=== PATIENT | female | born 1985 | race Caucasian/White ===

== ENCOUNTER → 2016-06-29 | Outpatient (CLI) | payer BC | END | disposition home or self-care (01) | LOC: GMAM 15:27 | PROVIDERS: ATTEND Family Medicine | DX: R53.83 Other fatigue (principal); F41.1 Generalized anxiety disorder ==

== ENCOUNTER 2019-07-31 09:06 | Emergency (ER) | payer BC ==
[2019-07-31] MEDS ORDERED: ONDANSETRON INJ 4 MG/2 ML VIAL IV ONE (09:14)
[2019-07-31] MEDS ORDERED: SODIUM CHLORIDE 0.9% (FLUSH) 10 ML SYG IV PRN (09:14)
[2019-07-31] MEDS ORDERED: KETOROLAC TROMETHAMINE INJ 30 MG/ML VIAL IV ONE (09:14)
[2019-07-31] MEDS ORDERED: SODIUM CHLORIDE 0.9% 1000ML 1,000 ML IVS ONE ×2 (09:15→09:58)
[2019-07-31] MEDS ORDERED: MORPHINE SULFATE INJ 10 MG/ML VIAL IV ONE ×2 (09:15→10:04)
--- NOTE | 2019-07-31 09:19 | ED.PDOC ---
History of Present Illness - General Time Seen by Provider: 07/31/19 09:10 Source: patient - History of Present Illness Initial Comments: 34 yo female with PMH of kidney stones who presents with cc of left flank and LLQ pain. Reports mild dull aching pains to Left flank for a couple days, acutely worsened this morning just [employer]. Now reports as sharp severe pain to Left flank which radiates to LLQ, constant, no known exacerbating factors, nothing taken at home for relief. LMP was 2 weeks ago. Denies any fevers, chills, diarrhea. Reports nausea and NBNB emesis upon ED arrival. Reports recent frequent urination but no burning or dysuria. Has had hx of UTI's in the past and kidney infections. Allergies/Adverse Reactions: Allergies NO KNOWN ALLERGY Allergy (Verified 07/31/19 09:47) Home Medications: Ambulatory Orders Norethindrone (Contraceptive) [Melissa] 0.35 mg PO DAILY #3 tab 11/08/13 RX: Ferrous Sulfate [Feosol Tab] 325 mg PO DAILY #100 tab 11/08/13 RX: HYDROcodone 5MG/APAP 325MG [Herreid 5/325] 1 ea PO Q8H PRN #12 tab 11/08/13 RX: Ibuprofen [Motrin] 600 mg PO Q8H PRN #22 tab 11/08/13 Acetamin W/Cod #3 Tab [Tylenol w/CODEINE #3] 1 ea PO Q6H PRN 10 Days #20 tab 07/31/19 Ondansetron Odt [Zofran ODT] 8 mg PO Q8H PRN 5 Days #10 tab 07/31/19 Tamsulosin [Flomax] 0.4 mg PO DAILY 7 Days #7 cap 07/31/19 Review of Systems - Review of Systems Review of Systems: 07/31/19 09:19 as per HPI All other Systems: Reviewed and Negative Past Medical History (General) - Patient Medical History Hx Seizures: No Hx Stroke: No Hx Dementia: No Hx Asthma: No Hx of COPD: No Hx Cardiac Disorders: No Hx Congestive Heart Failure: No Hx Pacemaker: No Hx Hypertension: No Hx Thyroid Disease: No Hx Diabetes: No Hx Gastroesophageal Reflux: No Hx Renal Disease: No Hx Cancer: No Hx of HIV: No Hx Hepatitis C: No Hx MRSA: No - Vaccination History Hx Tetanus, Diphtheria Vaccination: No Hx Influenza Vaccination: No Hx Pneumococcal Vaccination: No - Social History Hx Tobacco Use: No Hx Alcohol Use: No Hx Substance Use: No Hx Substance Use Treatment: No Hx Depression: No - Female History Hx Last Menstrual Period: 01/22/13 Patient : No Expected Date of Delivery:: 11/10/13 Family Medical History - Family History Mother Family History: No Known Physical Exam - Physical Exam General Appearance: Alert, Other - appears in distress from pain Eye Exam: bilateral normal Ears, Nose, Throat: hearing grossly normal, normal ENT inspection Neck: non-tender, full range of motion, supple, normal inspection Respiratory: lungs clear, normal breath sounds, no respiratory distress, no accessory muscle use Cardiovascular/Chest: normal peripheral pulses, regular rate, rhythm, no edema, no gallop, no JVD, no murmur Peripheral Pulses: radial,right: 2+, radial,left: 2+ Gastrointestinal/Abdominal: soft, tenderness - moderate to LLQ, no noted CVA tenderness Extremity: normal range of motion, non-tender, normal inspection, no pedal edema, no calf tenderness, normal capillary refill Neurologic: production finisher II-XII nml as tested, no motor/sensory deficits, alert, normal mood/affect, oriented x 3 Skin Exam: normal color, warm/dry Progress - Progress Progress: 07/31/19 09:20 Left flank and LLQ pain -consider kidney stone vs UTI/pyelo most likely. Consider also ectopic , ovarian torsion, ovarian cyst, constipation, appendicitis, pancreatitis, colitis, mesenteric adenitis, other -obtain labs, UA, hcg -place PIV, 1 L NS bolus, Toradol 30 mg IV, morphine 5 mg IV, Zofran 4 mg IV 07/31/19 12:08 -Labs show UA with 20-30 RBC, 0-1 WBC, rare bacteria - susp for kidney stone. WBC wnl, Cr 1.1, lactate 2.8. HCG negative. -CT A/P reveals moderate BL hydronephrosis and nonobstructing stone in L kidney but no ureteral stones. Suspect possibly very small stone missed by CT vs passed stone. Consider also ovarian cyst vs torsion still possible. -Pt still reports moderate pain in ED. Will obtain TVUS and repeat lactate. 08/01/19 15:00 -Repeat lactate improved to 1.3. TVUS showed normal appearing ovaries and 2 <2 cm fibroids in the uterus. Otherwise unremarkable. -Pt has remained stable in ED, pain markedly improved. Suspect likely ureteral stone which has either been missed on CT imaging or has been passed. Discussed with pt - will give Rx of Flomax, Tylenol #3 PRN, Zofran PRN. Dc home in good condition, return warnings discussed at length. F/u closely with PCP. Eber Velásquez MD Billing #[id number] 07/31/19 09:14 IV Care:Saline Lock per Protoc QSHIFT 07/31/19 12:15 BLOOD CULTURE Stat Laboratory Results - last 24 hr 07/31/19 07/31/19 07/31/19 09:23 09:23 09:23 WBC 8.1 RBC 4.20 Hgb 13.1 Hct 38.2 MCV 90.9 MCH 31.2 H MCHC 34.3 RDW 12.7 Plt Count 257 MPV 9.6 Absolute Neuts (auto) 3.90 Absolute Lymphs (auto) 3.40 Absolute Monos (auto) 0.60 Absolute Eos (auto) 0.10 Absolute Basos (auto) 0.10 Neutrophils % 48.7 Lymphocytes % 42.3 Monocytes % 6.9 Eosinophils % 1.2 Basophils % 0.9 Sodium 140 Potassium 3.6 Chloride 105 Carbon Dioxide 22 Anion Gap 16.6 BUN 14 Creatinine 1.14 BUN/Creatinine Ratio 12.3 Random Glucose 154 H Serum Osmolality 283.0 Lactic Acid 2.9 H* Calcium 9.2 Total Bilirubin 0.6 Direct Bilirubin 0.1 Indirect Bilirubin 0.5 AST 43 H ALT 42 Alkaline Phosphatase 31 L Serum Total Protein 6.8 Albumin 4.1 Amylase 61 Lipase 35 Serum HCG, Qual Urine Color Urine Appearance Urine pH Ur Specific [place] Urine Protein Urine Glucose (UA) Urine Ketones Urine Blood Urine Nitrite Urine Bilirubin Urine Urobilinogen Ur Leukocyte Esterase Urine RBC Urine WBC Ur Epithelial Cells Amorphous Sediment Urine Bacteria Urine HCG, Qual 07/31/19 07/31/19 07/31/19 09:23 10:25 12:15 WBC RBC Hgb Hct MCV MCH MCHC RDW Plt Count MPV Absolute Neuts (auto) Absolute Lymphs (auto) Absolute Monos (auto) Absolute Eos (auto) Absolute Basos (auto) Neutrophils % Lymphocytes % Monocytes % Eosinophils % Basophils % Sodium Potassium Chloride Carbon Dioxide Anion Gap BUN Creatinine BUN/Creatinine Ratio Random Glucose Serum Osmolality Lactic Acid 1.3 Calcium Total Bilirubin Direct Bilirubin Indirect Bilirubin AST ALT Alkaline Phosphatase Serum Total Protein Albumin Amylase Lipase Serum HCG, Qual Negative Urine Color Yellow Urine Appearance Sl cloudy Urine pH 7.0 Ur Specific [place] 1.025 Urine Protein Negative Urine Glucose (UA) Negative Urine Ketones Trace Urine Blood Moderate H Urine Nitrite Negative Urine Bilirubin Negative Urine Urobilinogen 0.2 Ur Leukocyte Esterase Negative Urine RBC 20-30 H Urine WBC 0-1 Ur Epithelial Cells 5-10 Amorphous Sediment 1+ Urine Bacteria Rare Urine HCG, Qual Cancelled Departure - Departure Clinical Impression: Kidney stone on left side, Fibroid uterus Time of Disposition: 14:14 Disposition: Discharge to Home or Self Care Condition: Fair Departure Forms: ED Discharge - Pt. Copy, Patient Portal Self Enrollment Instructions: Kidney Stones (DC), Uterine Fibroids (DC) Diet: resume usual diet Referrals: Tayo Ba MD [Primary Care Provider] - 1-2 Weeks Prescriptions: Acetamin W/Cod #3 Tab [Tylenol w/CODEINE #3] 1 ea PO Q6H PRN 10 Days #20 tab PRN Reason: Pain Ondansetron Odt [Zofran ODT] 8 mg PO Q8H PRN 5 Days #10 tab PRN Reason: Nausea Tamsulosin [Flomax] 0.4 mg PO DAILY 7 Days #7 cap Home Medications: Ambulatory Orders Norethindrone (Contraceptive) [Melissa] 0.35 mg PO DAILY #3 tab 11/08/13 RX: Ferrous Sulfate [Feosol Tab] 325 mg PO DAILY #100 tab 11/08/13 RX: HYDROcodone 5MG/APAP 325MG [Herreid 5/325] 1 ea PO Q8H PRN #12 tab 11/08/13 RX: Ibuprofen [Motrin] 600 mg PO Q8H PRN #22 tab 11/08/13 Acetamin W/Cod #3 Tab [Tylenol w/CODEINE #3] 1 ea PO Q6H PRN 10 Days #20 tab 07/31/19 Ondansetron Odt [Zofran ODT] 8 mg PO Q8H PRN 5 Days #10 tab 07/31/19 Tamsulosin [Flomax] 0.4 mg PO DAILY 7 Days #7 cap 07/31/19 Additional Instructions: Return if symptoms worsen or other concerning symptoms develop. Follow up closely with your primary care doctor in next 1-2 weeks for repeat evaluation and repeat urine testing as outpatient to ensure clearing of blood in the urine.
[2019-07-31] MEDS ORDERED: HYDROmorphone HCL INJ 2 MG/ML VIAL IV ONE (10:55)
--- NOTE | 2019-07-31 11:22 | CT ---
EXAM DESCRIPTION: Abdoment/Pelvis w/o Contrast: Computed Tomography. CLINICAL HISTORY: acute left flank and LLQ pain, hx of kidney stones COMPARISON: None. TECHNIQUE: Spiral-axial scans at 2.5 x 2.5 mm intervals PRONE through the abdomen and pelvis. 2.0 mm reconstructions. No IV or oral contrast. Total Exam DLP: 427 mGy-cm. This exam was performed according to our departmental CT dose-optimization program which includes automated exposure control, adjustment of the mA and/or kV according to patient size and/or use of iterative reconstruction technique; to reduce radiation dose to as low as reasonably achievable (ALARA). FINDINGS: Kidneys and Ureters: 3.6 mm radiodense stone in the upper collecting system of the right kidney. Tiny radiodense material in the inferior collecting system. No hydronephrosis. Large extrarenal pelvis left kidney, but no radiodense stones in the pelvis. No radiodense stones in the left kidney, no hydronephrosis, and no radiodense stones or hydroureter on the left. Pelvic Organs: No radiodense stones in the urinary bladder and no fluid/fluid level. No wall thickening. Uterus is anteverted. Ovaries not well seen. Minimal fluid in the cul-de-sac. Numerous calcifications in the adnexa abutting the cervix and lower uterine segment. Lung and pleura bases: Negative. Liver, spleen, stomach, and adrenal glands: Right lobe of the liver 21.6 cm in the long axis. Normal density. Stomach and solid organs are negative. Pancreas, Gallbladder, Ducts: Unremarkable. Aorta: Negative. Small Bowel: Unremarkable. Terminal Ileum/Cecum: Containing fecal material. Appendix not well seen. Normal caliber. Colon: Decompressed transverse descending and sigmoid colon. Mesentery: No fatty stranding fascial thickening free air free fluid. Spine and Bony Pelvis: Negative. Abdominal Wall/Back Soft Tissues: Unremarkable. IMPRESSION: 1. Less than 4 mm radiodense stone nonobstructing in the upper pole of the right kidney. No hydronephrosis, no ureteral radiodense stones are hydroureter bilaterally. Prominent left extrarenal pelvis does not contain stones. No radiodense stones in the urinary bladder. 2. Minimal fluid in the cul-de-sac. Uterus is anteverted. Numerous calcifications bilateral adnexa. Ovaries not well visualized. 3. Hepatomegaly with normal density. Correlate with clinical findings and liver function tests. Electronically signed by: Ant Cuadra MD 07/31/2019 11:21 AM CDT
[2019-07-31] MEDS ORDERED: TAMSULOSIN 0.4 MG CAP PO ONE (12:07)
--- NOTE | 2019-07-31 14:04 | US ---
EXAM DESCRIPTION: Pelvis Transvaginal: Ultrasound. CLINICAL HISTORY: 34 years Female LLQ pain, pelvic calcifications seen on CT COMPARISON: CT scan abdomen and pelvis without contrast on the same visit. Right abdominal pain. TECHNIQUE: Endovaginal scanning; Jones-scale and Doppler modes. FINDINGS: Uterus 8.4 x 4.4 x 3.7 cm 71.2 mL.. Endometrial thickness 3.6 mm. Myometrium heterogeneous. Hypoechoic mass with poorly defined barboza anterior myometrial wall subcapsular measuring 10 x 9 x 7 mm. Cyst at the second hyperechoic mass slightly more inferior also subcapsular to the anterior uterine wall measuring 10 x 8 x 7 mm.. Uterus not retroflexed. Cervix unremarkable. Cul-de-sac minimal fluid. Right ovary 2.7 x 1.8 x 1.5 cm 3.8 mL.. Normal color and waveform Doppler vascularity. Small follicles but no cysts. No adnexal mass or free fluid. Left ovary 2.3 x 1.8 x 1.2 cm 2.6 mL.. Normal waveform and color Doppler vascularity. Multiple follicles but no cysts. No adnexal mass or free fluid. IMPRESSION: 1. Uterus not enlarged with no endometrial thickening. At least 3 fibroids under 2 cm in greatest diameter. No endometrial thickening or fluid. Cervix unremarkable. Minimal fluid in the cul-de-sac. 2. Bilateral ovaries normal size with follicles but no dominant cysts. No adnexal masses. Electronically signed by: Ant Cuadra MD 07/31/2019 2:02 PM CDT
[2019-07-31 15:02] VITALS: O2SAT 98
[2019-07-31 15:05] VITALS: BP 104/78; TEMP 97.6
== END 2019-07-31 14:25 | disposition home or self-care (01) ==
LOC: ER 09:06
DX: N13.2 Hydronephrosis with renal and ureteral calculous obstruction (principal); D25.9 Leiomyoma of uterus, unspecified; R11.2 Nausea with vomiting, unspecified; Z87.442 Personal history of urinary calculi; Z87.440 Personal history of urinary (tract) infections; Z79.899 Other long term (current) drug therapy
CPT/HCPCS: 36415; 74176; 76830; 80048; 80076; 81001; 82150; 83605; 83690; 84703; 85025; 87040; J1170; J1885; J2270; J2405; J7030